=== PATIENT | male | born 1985 | race Caucasian/White ===

== ENCOUNTER 2021-05-29 08:31 | Outpatient (REF) | payer BC, SELFPAY ==
--- NOTE | ~2021-05-29 | XR_ITS ---
EXAMINATION: XR HAND, RIGHT CLINICAL INFORMATION: Right hand pain. COMPARISON: None. TECHNIQUE: PA, lateral, and oblique views of the right hand. FINDINGS: Nondisplaced, oblique fracture through the base of the 4th and 5th metacarpals. These appear to extend to the carpometacarpal articular surface. No dislocation. Mild joint space narrowing with tiny marginal osteophyte at the 4th distal interphalangeal joint. No osseous erosion. XR/XR hand RT min 3V IMPRESSION: Nondisplaced, oblique fracture through the base of the 4th and 5th metacarpals which appear to contact the articular surface.
== END 2021-05-29 08:32 | disposition home or self-care (01) ==
LOC: HO.HOSX 08:31
PROVIDERS: Visit Provider Orthopaedic Surgery
DX: S62.314A Displaced fracture of base of fourth metacarpal bone, right hand, initial encounter for closed fracture (principal); S62.316A Displaced fracture of base of fifth metacarpal bone, right hand, initial encounter for closed fracture
CPT/HCPCS: 26600; 73130

== ENCOUNTER 2021-06-05 14:11 | Outpatient (REF) | payer BC, SELFPAY ==
--- NOTE | ~2021-06-05 | XR_ITS ---
EXAMINATION: XR HAND, RIGHT CLINICAL INFORMATION: Right hand pain. COMPARISON: Right hand radiographs dated 05/29/2021. TECHNIQUE: PA, lateral, and oblique views of the right hand. FINDINGS: Proximal 4th and 5th metacarpal fractures are redemonstrated in unchanged anatomic alignment. No dislocation. No new fracture. No abnormal soft tissue calcification. No osseous erosion. XR/XR hand RT min 3V IMPRESSION: Proximal 4th and 5th metacarpal fractures in unchanged anatomic alignment.
== END 2021-06-05 14:12 | disposition home or self-care (01) ==
LOC: HO.HOSX 14:11
PROVIDERS: Visit Provider Physician Assistant
DX: S62.316D Displaced fracture of base of fifth metacarpal bone, right hand, subsequent encounter for fracture with routine healing (principal); S62.314D Displaced fracture of base of fourth metacarpal bone, right hand, subsequent encounter for fracture with routine healing
CPT/HCPCS: 73130

== ENCOUNTER 2021-07-03 08:36 | Outpatient (REF) | payer BC, SELFPAY | END 2021-07-03 08:37 | disposition home or self-care (01) | LOC: HO.HOSX 08:36 | PROVIDERS: Visit Provider Orthopaedic Surgery | DX: Z13.89 Encounter for screening for other disorder (principal) ==

== ENCOUNTER 2021-07-18 09:12 | Outpatient (REF) | payer BC, SELFPAY | END 2021-07-18 09:13 | disposition home or self-care (01) | LOC: HO.HOSX 09:12 | PROVIDERS: Visit Provider Orthopaedic Surgery | DX: Z13.89 Encounter for screening for other disorder (principal) ==